=== PATIENT | female | born 1975 | race Caucasian/White ===

== ENCOUNTER 2016-07-17 07:36 | Observation (INO) | payer BC ==
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
[2016-07-17 06:30] LABS: BASOPHILS 0.2 %; BASOPHILS ABSOLUTE 0.02 10/3/uL (0.0-0.16); EOSINOPHILS 2.6 %; EOSINOPHILS ABSOLUTE 0.24 10/3/uL (0.0-0.53); HEMATOCRIT 39.3 % (36.0-48.0); HEMOGLOBIN 13.5 g/dL (12.0-16.0); IMMATURE GRANULOCYTES 0.4 %; IMMATURE GRANULOCYTES ABSOLUTE 0.04 10/3/uL (0.0-0.11); LYMPHOCYTES 19.5 %; LYMPHOCYTES ABSOLUTE 1.83 10/3/uL (0.67-4.30); MEAN CORPUS HGB CONC 34.4 g/dL (32.0-36.0); MEAN CORPUSCULAR HEMOGLOB 28.9 pg (26.0-34.0); MEAN CORPUSCULAR VOLUME 84.2 fL (80-100); MEAN PLATELET VOLUME 9.4 fL (9.2-13.0); MONOCYTES 5.3 %; NEUTROPHILS ABSOLUTE 6.74 10/3/uL (2.02-8.40); PLATELET COUNT 265 10/3/uL (150-400); RBC DISTRIBUTION WIDTH 13.4 % (12.0-16.0); RED CELL COUNT 4.67 10/6/uL (4.0-5.6); WHITE BLOOD CELLS 9.4 10/3/uL (4.5-10.5)
[2016-07-17 06:32] LABS: MANUAL DIFF NO %
[2016-07-17 06:38] LABS: PARTIAL THROMBO TIME 35.5 SEC (22.5-37.2); PROTIME (NOT ORD) 13.5 SEC (12.0-14.5)
[2016-07-17 06:41] LABS: D-DIMER QUANTITATIVE 1.44 ug/mLFEU (< 0.50)
[2016-07-17 06:48] LABS: BUN (BLOOD UREA NITROGEN) 13 MG/DL (6-23); CALCIUM, SERUM 9.3 MG/DL (8.5-10.4); CHEST PAIN PROFILE TAT 0 Hrs 24 Mins; CHLORIDE, SERUM 102 MMOL/L (96-112); CO2 (CARBON DIOXIDE) 29 MMOL/L (24-34); CREATININE 0.77 MG/DL (0.55-1.02); GFR AFRICAN AMERICAN 114 ML/MIN (>=60); GFR NON AFRICAN AMERICAN 98 ML/MIN (>=60); GLUCOSE, SERUM 105 MG/DL (60-99); POTASSIUM, SERUM 3.9 MMOL/L (3.5-5.3); SODIUM, SERUM 138 MMOL/L (135-148); TROPONIN I <0.02 NG/ML (<0.05)
[~2016-07-17 07:36] MED LIST: DORYX100 MG PO; FLUCON150 PO; LORTAB10 PO; PRIN20 PO; TOPAMAX25 PO; WELLSR150 PO
[2016-07-17] MEDS ORDERED: ZANTAC300 MG PO (07:38)
[2016-07-17] MEDS ORDERED: HYZAAR1 TAB PO (07:38)
[2016-07-17] MEDS ORDERED: METHATAB40 PO (07:40)
[2016-07-17] MEDS ORDERED: ADDERALL30 MG PO (07:40)
[2016-07-17] MEDS ORDERED: CARDCD120 PO (07:41)
[2016-07-17] MEDS ORDERED: SPIRO25 PO (07:41)
[2016-07-17] MEDS ORDERED: CAT1 PO (07:41)
[2016-07-17] MEDS ORDERED: MIRALAX POWDER1 PKT PO (07:42)
[2016-07-17] MEDS ORDERED: REFRESH OPH (07:43)
[2016-07-17] MEDS ORDERED: ACET500CAP PO (07:43)
[2016-07-17 10:47] LABS: TROPONIN I <0.02 NG/ML (<0.05)
[2016-07-17 12:12] LABS: CHOL/HDL RATIO(NOT ORDER) 3.2 (0-5); CHOLESTEROL 122 MG/DL (< 200); HDL CHOLESTEROL 38 MG/DL (> 49); LDL CHOLESTEROL 64 MG/DL (< 130); NON-HDL CHOLESTEROL 84 MG/DL (< 160); TRIGLYCERIDE 102 MG/DL (< 150)
== END 2016-07-17 16:30 | disposition home or self-care (01) ==
LOC: ER 07:36 → CDU1 07:56
PROVIDERS: Clinical Nurse Specialist; Specialist
DX: R07.89 Other chest pain (principal); I10 Essential (primary) hypertension; G47.30 Sleep apnea, unspecified; F41.9 Anxiety disorder, unspecified; F32.9 Major depressive disorder, single episode, unspecified; I73.00 Raynaud's syndrome without gangrene; Z90.49 Acquired absence of other specified parts of digestive tract; Z90.710 Acquired absence of both cervix and uterus; Z99.81 Dependence on supplemental oxygen; Z98.890 Other specified postprocedural states; Z88.8 Allergy status to other drugs, medicaments and biological substances; Z79.899 Other long term (current) drug therapy
CPT/HCPCS: 70450; 71010; 71275; 80048; 80061; 82150; 83690; 83735; 84484; 85025; 85379; 85610; 85730; 93005; 93017; 99285; A9270-GY; C8928; G0378; J2405; Q9967